=== PATIENT | female | born 1955 | race Caucasian/White ===

== ENCOUNTER 2016-11-10 18:26 | Emergency (ER) | payer OTHER ==
[~2016-11-10] VITALS: Ht 170.2 cm; Wt 102.2 kg
[~2016-11-10 18:26] MED LIST: LOTR10CA PO; METH750T2 PO; PROC1TAB8 PO
[2016-11-10 18:30] VITALS: BP 162/85; PULSE 100; RESP 16; TEMP 98; O2SAT 98
--- NOTE | 2016-11-11 00:43 | PD ---
HPI Chief Complaint: Skin Problem Time Seen by Provider: 00:17 Travel History International Travel<30 days: No Contact w/Intl Traveler<30days: No Traveled to known affect area: No History of Present Illness HPI Patient's 51 years old and cellulitis of the left leg. She was admitted to the hospital for cellulitis. She was discharged on doxycycline about 5 days ago. She has noted mild gradual movements since. No fever has occurred. She saw Dr. Rajan today and was advised she would receive at home wound care as well as Levaquin prescription. Evidently neither was provided and so the patient arrives here for guidance regarding wound care/management. She's had no fever or progression of the cellulitis that she can appreciate. She reports strict compliance doxycycline. Family members present and willing to change her dressing twice daily. An ultrasound was performed at the outside hospital which showed no DVT. PFSH Past Medical History Arthritis: Yes Atrial Fibrillation: Yes ("PRE-AFIB" PER PT) Heart Rhythm Problems: Yes Cancer: No Cardiovascular Problems: Yes (HTN IRREGULAR HEART BEAT) Diabetes: No Diminished Hearing: No Endocrine: No Genitourinary: No Hepatitis: Yes (CHEMICAL HEP ) Hiatal Hernia: No Hypertension: Yes Immune Disorder: No Musculoskeletal: Yes (ARTHRITIS) Neurologic: No Psychiatric: No Reproductive: No Respiratory: Yes (SLEEP APNEA/ ORAL APPLIANCE) Pneumonia: Yes Sleep Apnea: Yes (USES ORAL APPLIANCE) Thyroid Disease: No Past Surgical History Abdominal Surgery: Yes (LAP. JUAN, EXPL. LAP./ LYSIS ADHESIONS) AICD: No Cholecystectomy: Yes Eye Surgery: Yes (BILATERAL CATARACTS) Gynecologic Surgery: Yes (HYSTERECTOMY/ BSO) Hysterectomy: Yes Joint Replacement: No Pacemaker: No Other Surgery: Yes Social History Alcohol Use: No Tobacco Use: No Substance Use: No Allergies-Medications (Allergen,Severity, Reaction): Coded Allergies: Adhesives (Verified Allergy, Severe, SKIN BLISTERS, 03/29/16) PT HAD BLISTERS FROM STERI-STRIPS. AND RASH FROM SOME BANDAIDS Sulfa (Unverified Allergy, Severe, 03/29/16) Methotrexate (Verified Allergy, Intermediate, 11/11/16) Reported Meds & Prescriptions Reported Meds & Active Scripts Active Xeroform Petrolatum Dress (Bismuth Tribromophenate-Petrol) 1 Mis Mis 1 Pad TOPICAL BID NEB 28 Days Reported Doxycycline (Doxycycline (Monohydrate)) 100 Mg Cap BID Methylprednisolone 4 Mg Tab 2 Mg PO DAILY [Lantanprost] Amlodipine-Benazepril 10-20 Mg Cap 1 Cap PO DAILY Review of Systems Except as stated in HPI: all other systems reviewed are Neg Physical Exam Narrative GENERAL: 61-year-old female pleasant well-nourished well-developed SKIN: Warm and dry. Erythema from the left lower need to the region of the left ankle mortise circumferential was some blister formation along the medial aspect. No marked tenderness. 2+ dorsalis pedis bilaterally. No crepitus. HEAD: Atraumatic. Normocephalic. EYES: Pupils equal and round. No scleral icterus. No injection or drainage. ENT: No nasal bleeding or discharge. Mucous membranes pink and moist. NECK: Trachea midline. No JVD. CARDIOVASCULAR: Regular rate and rhythm. No murmur appreciated. RESPIRATORY: No accessory muscle use. Clear to auscultation. Breath sounds equal bilaterally. GASTROINTESTINAL: Abdomen soft, non-tender, nondistended. Hepatic and splenic margins not palpable. MUSCULOSKELETAL: No obvious deformities. No clubbing. No cyanosis. No edema. NEUROLOGICAL: Awake and alert. No obvious cranial nerve deficits. Motor grossly within normal limits. Normal speech. PSYCHIATRIC: Appropriate mood and affect; insight and judgment normal. Data Data Last Documented VS Vital Signs Date Time Temp Pulse Resp B/P Pulse Ox O2 Delivery O2 Flow Rate FiO2 11/11/16 01:31 61 18 161/76 96 11/10/16 18:30 98.0 Orders Basic Metabolic Panel (Bmp) (11/11/16 00:41) Complete Blood Count With Diff (11/11/16 00:41) Blood Culture (11/11/16 00:41) Wound Culture And Gram Stain (11/11/16 00:41) Iv Access Insert/Monitor (11/11/16 00:41) Wound Care (11/11/16 00:41) Ankle, Limited (Ap&Lat) (11/11/16 ) Foot, Limited (2vws) (11/11/16 ) Labs Laboratory Tests Test 11/11/16 00:55 White Blood Count 12.5 TH/MM3 Red Blood Count 4.99 MIL/MM3 Hemoglobin 14.7 GM/DL Hematocrit 43.9 % Mean Corpuscular Volume 88.0 FL Mean Corpuscular Hemoglobin 29.6 PG Mean Corpuscular Hemoglobin 33.6 % Concent Red Cell Distribution Width 14.1 % Platelet Count 350 TH/MM3 Mean Platelet Volume 8.8 FL Neutrophils (%) (Auto) 77.5 % Lymphocytes (%) (Auto) 15.0 % Monocytes (%) (Auto) 7.2 % Eosinophils (%) (Auto) 0.1 % Basophils (%) (Auto) 0.2 % Neutrophils # (Auto) 9.7 TH/MM3 Lymphocytes # (Auto) 1.9 TH/MM3 Monocytes # (Auto) 0.9 TH/MM3 Eosinophils # (Auto) 0.0 TH/MM3 Basophils # (Auto) 0.0 TH/MM3 CBC Comment AUTO DIFF Sodium Level 142 MEQ/L Potassium Level 3.4 MEQ/L Chloride Level 104 MEQ/L Carbon Dioxide Level 30.2 MEQ/L Anion Gap 8 MEQ/L Blood Urea Nitrogen 17 MG/DL Creatinine 0.99 MG/DL Estimat Glomerular Filtration 57 ML/MIN Rate Random Glucose 118 MG/DL Calcium Level 9.1 MG/DL MDM Medical Decision Making Medical Screen Exam Complete: Yes Emergency Medical Condition: Yes Medical Record Reviewed: Yes Differential Diagnosis Cellulitis, DVT, abscess, necrotizing fasciitis Narrative Course CBC & BMP Diagram 11/11/16 00:55 Last 24 hours Impressions Foot X-Ray 11/11/16 0000 Signed Impressions: Service Date/Time: Friday, November 11, 2016 00:56 - CONCLUSION: Diffuse soft tissue swelling about the forefoot or midfoot; the osseous structures are grossly intact. Haider Veliz MD Ankle X-Ray 11/11/16 0000 Signed Impressions: Service Date/Time: Friday, November 11, 2016 00:52 - CONCLUSION: Diffuse soft tissue swelling. The osseous structures appear grossly intact. Haider Veliz MD Unfortunately the patient's overall presentation appears to be improving. Her white count on admission at outside hospitals 18. Today at school. She is overall the area cellulitis of the left lower extremity appears to be healing appropriately. We have provided wound care instructions as well as a prescription for Xeroform. We'll extend the doxycycline prescription for extra 5 days. Return precautions were discussed in some detail. Follow-up as listed. Diagnosis Primary Impression: Cellulitis Qualified Code: L03.116 - Cellulitis of left lower extremity Referrals: DR RAJAN 3 days Yon BrockM 3 days Additional Instructions: You have a choice when it comes to health care, and we are glad that you chose [facility]. Hopefully, we have met your expectations on today's visit. You are welcome to return to [facility] at any time, as we are committed to meeting the health care needs of our community. Med/Other Pt SpecificInfo: Prescription(s) given Scripts Doxycycline Hyclate DR 100 Mg [id number] Mg PO BID 5 Days Ref 0 Prov:Quincy Thomas MD 11/11/16 Bismuth Tribromophenate-Petrol (Xeroform Petrolatum Dress)1 Mis Mis1 Pad TOPICAL BID NEB 28 Days Prov:Quincy Thomas MD 11/11/16 Disposition: 01 DISCHARGE HOME Condition: Stable Quincy Thomas MD Nov 11, 2016 00:43
[2016-11-11] MEDS ORDERED: AMLO10CA PO (00:52)
[2016-11-11] MEDS ORDERED: METH4TAB6 PO (00:52)
[2016-11-11] MEDS ORDERED: DOXY1CAP91 (00:52)
[2016-11-11] MEDS ORDERED: [UNRECOGNIZED DRUG - OTHER] (00:52)
--- NOTE | 2016-11-11 01:11 | RADRPT ---
EXAM DATE/TIME: 11/11/2016 00:52 [facility] COMPARISON: No previous studies available for comparison. INDICATIONS : Pt has had left lower leg swelling x 3 days. Numerous blisters to lower leg as well as redness and sw elling. MEDICAL HISTORY : None. SURGICAL HISTORY : None. ENCOUNTER: Initial ACUITY: 3 days PAIN SCORE: 8/10 LOCATION: Left ankle FINDINGS: Two view exam was performed of the left ankle. The bony structures are in normal alignment. No evid ence of fracture, dislocation, or periosteal reaction. Prominent soft tissue swelling about the mid and distal leg. No radiopaque foreign bodies are seen. Bony mineralization is normal. CONCLUSION: Diffuse soft tissue swelling. The osseous structures appear grossly intact. Haider Veliz MD on November 11, 2016 at 1:09 Board Certified Radiologist. This report was verified electronically.
[2016-11-11 01:12] LABS: AUTOMATED NEUTROPHIL # 9.7 TH/MM3 (1.8-7.7); BASOPHIL % 0.2 % (0.0-2.0); EOSINOPHIL % 0.1 % (0.0-4.0); HEMATOCRIT 43.9 % (35.0-46.0); LYMPHOCYTE # 1.9 TH/MM3 (1.0-4.8); MEAN CORPUSCULAR HEMOGLOBIN 29.6 PG (27.0-34.0); MEAN CORPUSCULAR HGB CONC 33.6 % (32.0-36.0); MONO % 7.2 % (0.0-8.0); NEUT % 77.5 % (16.0-70.0); PLATELET COUNT 350 TH/MM3 (150-450); RED BLOOD COUNT 4.99 MIL/MM3 (4.00-5.30); RED CELL DISTRIBUTION WIDTH 14.1 % (11.6-17.2); WHITE BLOOD COUNT 12.5 TH/MM3 (4.0-11.0)
--- NOTE | 2016-11-11 01:12 | RADRPT ---
EXAM DATE/TIME: 11/11/2016 00:56 [facility] COMPARISON: No previous studies available for comparison. INDICATIONS : Pt has had left lower leg swelling x 3 days. Numerous blisters to lower leg as well as redness and sw elling. MEDICAL HISTORY : None. SURGICAL HISTORY : None. ENCOUNTER: Subsequent ACUITY: 3 days PAIN SCORE: 8/10 LOCATION: Left foot FINDINGS: There is diffuse soft tissue swelling about the forefoot and midfoot. The osseous structures appear grossly intact. No periosteal reaction, radiopaque foreign body or evidence of fracture. Small retr ocalcaneal spur. CONCLUSION: Diffuse soft tissue swelling about the forefoot or midfoot; the osseous structures are grossly intact . Haider Veliz MD on November 11, 2016 at 1:10 Board Certified Radiologist. This report was verified electronically.
[2016-11-11 01:13] LABS: HEMO FLAGS AUTO DIFF
[2016-11-11 01:27] LABS: BICARBONATE 30.2 MEQ/L (21.0-32.0); POTASSIUM 3.4 MEQ/L (3.5-5.1)
[2016-11-11 01:31] VITALS: BP 161/76; PULSE 61; RESP 18; O2SAT 96
[2016-11-11] MEDS ORDERED: XEROMIS TOPICAL (02:19)
[2016-11-11] MEDS ORDERED: DOXY1TAB6 PO (02:27)
[2016-11-11 02:56] LABS: PLATELET ESTIMATE SMEAR NORMAL (NORMAL); PLATELET MORPHOLOGY NORMAL (NORMAL); SCAN/DIFF AUTO DIFF CONFIRMED
[2016-11-12] MEDS ORDERED: LATA.005%O (08:59)
== END 2016-11-11 02:56 | disposition home or self-care (01) ==
LOC: NEPE 18:26
DX: L03.116 Cellulitis of left lower limb (principal); B95.61 Methicillin susceptible Staphylococcus aureus infection as the cause of diseases classified elsewhere
CPT/HCPCS: 73600; 73620; 80048; 85025; 86403; 87040; 87070; 87186; 99283

== ENCOUNTER → 2017-09-25 | Outpatient (CLI) | payer OTHER ==
[~2017-09-25] MED LIST changes: +ADJUSTABLE COMM1 MIS; +AMLO10 PO; +AMLO10CA PO; +CETI10CA3 PO; +CPMMACHINE; +DOXY1CAP91; +DOXY1TAB6 PO; +FLUO0.022 TOPICAL; +HALO0.053 TOPICAL; +LATA.005%O; +LEFL1TAB3 PO; +LOPE2CAP PO; -LOTR10CA PO; +METH4TAB6 PO; -METH750T2 PO; -PROC1TAB8 PO; +VALS1TAB65 PO; +WALKER WHEELS/F1 MIS; +XEROMIS TOPICAL
== END ==
LOC: CPRE 08:04
PROVIDERS: ATTEND Surgery
DX: Z01.810 Encounter for preprocedural cardiovascular examination (principal); Z01.812 Encounter for preprocedural laboratory examination; Z79.01 Long term (current) use of anticoagulants

== ENCOUNTER 2017-10-02 05:36 | Inpatient (IN) | payer OTHER ==
--- NOTE | 2017-09-26 15:56 | MH ---
cc: Ese NANCE M.D. DATE OF ADMISSION: 10/02/2017 ADMISSION DIAGNOSIS Osteoarthritic degeneration right knee now being admitted for right total knee arthroplasty. ADMISSION HISTORY AND PHYSICAL This is a pleasant 61-year-old female who is being admitted today for right total knee arthroplasty due to severe painful osteoarthritic degeneration right knee. PAST MEDICAL HISTORY: Other past history she has psoriatic arthritis as well. She also has a history of hypertension Sciatica. CURRENT MEDICATIONS Amiodarone Benazepril PAST SURGERIES Hysterectomy Cholecystectomy Cataract surgery Shoulder repair Exploratory lap. Lysis of adhesions. REVIEW OF SYSTEMS Noncontributory. FAMILY HISTORY Noncontributory. ALLERGIES She has allergies to STERI-STRIPS AND SULFA MEDICATION. PHYSICAL EXAMINATION: IN GENERAL: We find a 61-year-old female well-developed, well-nourished x3 complaint of pain right knee. VITAL SIGNS: Blood pressure 118/78, pulse 66 and regular, respirations 16, temperature 97.8, pulse oximetry 97% on room air. HEAD, EYES, EARS, NOSE, AND THROAT: Eyes Pupils equal, round, reactive to light and accommodation, extraocular muscles intact, Ears, nose, mouth clear. NECK: Supple. LUNGS: Clear. HEART: Regular rate. ABDOMEN: Soft. Bowel sounds, nontender. EXTREMITIES: Reveal her right knee to have crepitance on range of motion. NEUROLOGICALLY: Neurovascularly her toes. IMPRESSION Severe painful osteoarthritic degeneration right knee. PLAN Admission for right total knee arthroplasty today. The patient understands procedure well and risks involved and is given prescription postoperative pain anticoagulation control in the office understands the use Hibiclens scrub and Bactroban preoperatively. The patient plans on going home with home health care after surgical stay in the hospital. JMD CURTIS Ibrahim/willy /3:43 PM /3:53 PM MTDNanda
[~2017-10-02] VITALS: Ht 170.2 cm; Wt 98.9 kg
[~2017-10-02 05:36] MED LIST changes: -ADJUSTABLE COMM1 MIS; -AMLO10CA PO; -CPMMACHINE; -DOXY1CAP91; -DOXY1TAB6 PO; -HALO0.053 TOPICAL; -METH4TAB6 PO; -WALKER WHEELS/F1 MIS; -XEROMIS TOPICAL
[2017-10-02] MEDS ORDERED: ceFAZolin 2 GM PREMIX 50 ML IV SCH (06:15)
[2017-10-02] MEDS ORDERED: LACTATED RINGER'S 1000 ML IV PRN (06:15)
[2017-10-02] MEDS ORDERED: DEXAMETHASONE SOD PHOS 20 MG/5 ML VIAL IV SCH (06:15)
[2017-10-02] MEDS ORDERED: POVIDONE IODINE 5% (ANTISEPSIS KIT) 4 APPLICATIONS EACH NARE PRN (06:15)
[2017-10-02] MEDS ORDERED: METOPROLOL TARTRATE 25 MG TAB PO PRN (06:15)
[2017-10-02] MEDS ORDERED: VANCOMYCIN 1000 MG/NS 250 ML (for <70 kg) IV SCH ×2 (06:15)
[2017-10-02] MEDS ORDERED: SODIUM CHLORID 0.9% 500 ML IV PRN (06:15)
[2017-10-02] MEDS ORDERED: CHLORHEXIDINE GLUCONATE 2 % 1 PACK (2 CLOTHS) TOPICAL PRN (06:15)
[2017-10-02] MEDS ORDERED: CHLORHEXIDINE GLUCONATE 4% SOLN 120 ML BTL TOPICAL SCH (06:15)
[2017-10-02] MEDS ORDERED: HALO0.053 TOPICAL (06:26)
[2017-10-02] MEDS ORDERED: ACETAMINOPHEN 1000 MG/100 ML 0 ML IV ONE (06:49)
[2017-10-02] MEDS ORDERED: FAMOTIDINE 20 MG/2 ML VIAL ONE (06:50)
[2017-10-02] MEDS ORDERED: ceFAZolin INJ 1,000 MG VIAL ONE (06:53)
[2017-10-02] MEDS ORDERED: BUPIVACAINE LIPOSOME PF 1.3% 20 ML VIAL ONE (07:32)
--- NOTE | 2017-10-02 07:56 | HHI.FF ---
Face to Face Verification Diagnosis: (1) Status post total right knee replacement Physical Therapy Gait training Knee: Total knee, Protocol: Right, Gait training, Full weight bearing Canvas Knee Splint: When in bed & 2 pillows btw thighs Nursing RN: 3 days/week x 2 weeks Nursing: Dressing changes Dressing Changes: Daily dressing change, 4x4s, Gauze, Paper tape I have seen patient Mariza Otero on 10/02/17. My clinical findings support the need for the requested home health care services because: Limited ability to care for self High risk of falls I certify that my clinical findings support that this patient is homebound because: Unsteady gait/balance Ese Polo MD Oct 02, 2017 07:56
[2017-10-02] MEDS ORDERED: CPMMACHINE (07:58)
[2017-10-02] MEDS ORDERED: ADJUSTABLE COMM1 MIS (07:58)
[2017-10-02] MEDS ORDERED: WALKER WHEELS/F1 MIS (07:58)
[2017-10-02] MEDS ORDERED: TEMAZEPAM 15 MG CAP PO PRN (08:00)
[2017-10-02] MEDS ORDERED: SODIUM CHLORIDE 0.9% IV SCH ×2 (08:00→11:00)
[2017-10-02] MEDS ORDERED: NALOXONE HCL 0.4 MG/ML AMP IV PUSH PRN (08:00)
[2017-10-02] MEDS ORDERED: ACETAMINOPHEN/HYDROcodone 325 MG/7.5 MG TAB PO PRN (08:00)
[2017-10-02] MEDS ORDERED: diphenhydrAMINE HCL 50 MG/ML VIAL IV PUSH PRN (08:00)
[2017-10-02] MEDS ORDERED: MORPHINE SULFATE 4 MG/ML INJ IV PUSH PRN (08:00)
[2017-10-02] MEDS ORDERED: Post-op Orders (for Pharmacy) MISC XX ONE (08:00)
[2017-10-02] MEDS ORDERED: ONDANSETRON HCL 4 MG/2 ML VIAL IVP PRN (08:00)
[2017-10-02] MEDS ORDERED: TRANEXAMIC ACID IV SCH ×2 (08:00→11:00)
[2017-10-02] MEDS ORDERED: ACETAMINOPHEN 325 MG TAB PO PRN (08:00)
[2017-10-02] MEDS ORDERED: EXPAREL PERI-ARTICULAR INJECTION (TOTAL VOL. 120 ML) P-ARTICULR SCH ×2 (08:00)
[2017-10-02] MEDS ORDERED: TRANEXAMIC ACID INJ 0 MG in SODIUM CHLORIDE 0.9% INJ 100 ML IV SCH (08:00)
[2017-10-02] MEDS: VALSARTAN 160 MG TAB PO SCH (09:00)
[2017-10-02] MEDS ORDERED: LEFLUNOMIDE 20 MG TAB PO SCH (09:00)
[2017-10-02] MEDS: SODIUM CHLORIDE 0.9% FLUSH 10 ML FLUSH IV FLUSH SCH ×2 (09:00→21:00)
[2017-10-02] MEDS: CETIRIZINE HCL 10 MG TAB PO SCH (09:00)
[2017-10-02] MEDS ORDERED: TRIAMCINOLONE ACETONIDE 0.1% OINT 15 GM TUBE TOPICAL PRN (09:00)
[2017-10-02] MEDS ORDERED: SODIUM CHLORIDE 0.9% FLUSH 10 ML FLUSH IV FLUSH PRN (09:15)
[2017-10-02] MEDS: BETAMETHASONE DIPROPIONATE 0.05% OINT 15 GM TUBE TOPICAL SCH ×2 (10:00→21:00)
--- NOTE | 2017-10-02 10:38 | MP ---
cc: Ese POLO M.D. DATE OF SURGERY 10/02/2017 PREOPERATIVE DIAGNOSIS Osteoarthritic degeneration right knee. POSTOPERATIVE DIAGNOSIS Osteoarthritic degeneration right knee. SURGERY PERFORMED Right total knee arthroplasty using Consensus components size 4 femur, 2 tibia, 1 patella, size 12 insert and two batches of DePuy cement. SURGEON Dr. Polo REGULATORY AND COMPLIANCE TECHNICIAN GUALBERTO Rossi ANESTHESIA General intubation and adductor canal block PROCEDURE After successful induction of anesthesia, the patient is placed on the operating room table in the supine position. The knee is prepped and draped in the usual manner. A tourniquet is inflated at the upper thigh and set to 300 mmHg pressure after exsanguination of the lower extremity. A longitudinal incision is made extending from 3 inches proximal to the superior pole of the patella, across the patella in longitudinal fashion, and down past the insertion of the tibial tubercle into the proximal tibia. The incision is carried down through subcutaneous tissue along the medial aspect of the patella and retinaculum, down through the capsule to expose the knee joint. The patella and patellar tendon are freed up enough to allow the patella to be inverted and retracted off the lateral side of the knee joint. The knee joint is left exposed. Small osteophytes are removed. All soft tissue is removed to allow proper position of the femoral and tibial cutting jig guide. The first femoral jig is then inserted along the distal end of the femur after first measuring to decide whether this is a small, medium, or large component. The notch is then drilled and the tibial cutting guide inserted into the femoral cutting guide, along with the ankle brace to allow for proper measurement of the tibial cutting surface that needed to be resected. Pins are inserted into the tibial cutting jig and femoral cutting jig to hold them in place. An oscillating saw is then used to resect the surface of the tibia. The surface of the tibia is then completely removed using sharp and blunt dissection. The anterior and posterior cuts of the femur are then made as well using an oscillating saw through the cutting guide. All guides are then removed and the varus/valgus angulation cutting guide applied to the femur for proper measurement of the proper amount of valgus. The anterior cutting guide for the femur is then inserted at the anterior femoral cuts made. Next, the first block trial is inserted into the femur to allow for proper condyle drill holes to be made which are then made followed by removal of the bone between the condyles using an oscillating saw as well as the bone removed at the most posterior surface of the condyle. After this, this guide is removed and the chamfer cuts made using the chamfer cutting guide from both anterior and posterior. Next, the femoral trial is then inserted, the tibial surface reflected anterior to expose the tibial surface and a tibial stem guide is inserted after first measuring for a standard, standard plus, large, or large plus surface to be used. After the stem is impacted the trial tibial surface is applied followed by the trial meniscal components. After full range of motion is found with the appropriate length meniscal components varying the patella is prepared by resecting the posterior aspect of the patella using an oscillating saw, inserting a trial. The trial is then removed and the cruciate cutting guide applied using the bur to cut the cruciate cuts. After cruciate cuts are made all trials are removed. The wound is irrigated copiously with antibiotic solution and Water-Pik and the actual components inserted into place using Consensus components size 4 femur, 2 tibia, 1 patella, size 12 insert and two batches of [employer] cement After the cement has hardened and the components are found to have full range of motion with no instability, the tourniquet is deflated, total tourniquet time being 53 minutes at 300 mmHg pressure. The wound again is irrigated copiously with antibiotic solution, meticulous hemostasis achieved. 120 cc of Exparel used around the knee joint for extra pain control. The deep fascia approximated with running #2 Quill, subcutaneous tissue approximated using interrupted 2-0 and 3-0 Monocryl suture, skin glue and a sterile dressing. Note, no Steri-Strips as the patient is allergic to Steri-strips. A knee immobilizer applied. No drain utilized. ESTIMATED BLOOD LOSS: 50 cc. COUNTS: Sponge and suture counts were correct. The patient tolerated the procedure well, left the operating room in satisfactory condition. GUALBERTO Rossi was present during the entire procedure to include patient positioning and the procedure. The medical necessity of a nurse practitioner as a executive assistant was indicated in this case due to the surgical complexity of the case itself and during the surgical case, the radio television technical director was working the back table while my assistant sales manager GUALBERTO was directly assisting me. J. MD CURTIS Hernandez/DJL /10:28 AM /10:32 AM MTDD
--- NOTE | 2017-10-02 10:44 | HHI.PR ---
Immediate Post Op Note Procedure Date: Oct 02, 2017 Pre Op Diagnosis: Osteoarthritis of right knee Post Op Diagnosis: Osteoarthritis of right knee Surgeon: Ese Polo MD Rn Medical Surgical(s): Sabi BURCIAGA Procedure: Right Total Knee Arthroplasty Complications: none Specimen(s) removed: none Estimated blood loss: 50cc Anesthesia: General Drains: None IVF Urinary Output (mLs): 0 (no funes) Tourniquet time (min at mmHg) 53 mins at 300 mmHg Patient to: PACU Patient Condition: Good Implant/Devices: SEE IMPLANT LOG (if applicable) Date/Time of Procedure: SEE SURGICAL CARE RECORD Sabi Schreiber Oct 02, 2017 10:44
[2017-10-02] MEDS ORDERED: DO NOT ADM ANY ANTICOAGULANT DRUGS PRN (10:45)
[2017-10-02] MEDS ORDERED: *morphine SULFATE 8 MG/ML PERIprocedure ONLY ONE (10:59)
[2017-10-02] MEDS: LACTATED RINGER'S 1000 ML INJ 1,000 ML IV SCH ×2 (11:05→21:30)
--- NOTE | 2017-10-02 11:28 | RADRPT ---
EXAM DATE/TIME: 10/02/2017 09:07 [facility] COMPARISON: No previous studies available for comparison. INDICATIONS : Post-op Right knee replacement. MEDICAL HISTORY : None. SURGICAL HISTORY : Total knee replacement, right. ENCOUNTER: Initial ACUITY: 1 day PAIN SCORE: Non-responsive. LOCATION: Right Knee FINDINGS: 2 views of the knee show a total knee prosthesis in good position. No fracture or dislocation is obse rved. Soft tissue swelling is noted. Air and fluid is noted within the joint. CONCLUSION: Total knee arthroplasty in good position. Haider Gilmore Jr., MD on October 02, 2017 at 11:26 Board Certified Radiologist. This report was verified electronically.
[2017-10-02] MEDS ORDERED: PROPOFOL 200 MG/20 ML AMP IV ONE (12:00)
[2017-10-02] MEDS ORDERED: ROCURONIUM INJ 50 MG/5 ML SYRINGE IV PUSH ONE (12:00)
[2017-10-02] MEDS ORDERED: LIDOCAINE HCL 1% PF 5 ML SYRINGE OTHER ONE (12:00)
[2017-10-02] MEDS ORDERED: LACTATED RINGER'S 1000 ML INJ 1,000 ML IV ONE (12:00)
[2017-10-02] MEDS ORDERED: GLYCOPYRROLATE 1 MG/5 ML SYRINGE IV PUSH ONE (12:00)
[2017-10-02] MEDS ORDERED: MIDAZOLAM HCL 2 MG/2 ML VIAL IV ONE (12:00)
[2017-10-02] MEDS ORDERED: NEOSTIGMINE 3 MG/3 ML SYR IV ONE (12:00)
[2017-10-02] MEDS ORDERED: ONDANSETRON HCL 4 MG/2 ML VIAL IV PUSH ONE (12:00)
[2017-10-02 12:50] VITALS: BP 124/78; PULSE 80; RESP 18; TEMP 96.7; O2SAT 93
[2017-10-02] MEDS: ACETAMINOPHEN/HYDROcodone 325 MG/7.5 MG TAB PO PRN (14:54)
[2017-10-02 15:44] VITALS: O2SAT 97
[2017-10-02 16:00] VITALS: BP 139/74; PULSE 87; RESP 16; TEMP 97.8; O2SAT 92
[2017-10-02 19:56] VITALS: BP 120/70; PULSE 82; RESP 18; TEMP 96.4; O2SAT 98
[2017-10-02 23:33] VITALS: BP 121/59; PULSE 72; RESP 17; TEMP 98.6; O2SAT 95
[2017-10-03] MEDS: ACETAMINOPHEN/HYDROcodone 325 MG/7.5 MG TAB PO PRN ×3 (00:22→13:48)
[2017-10-03 04:00] VITALS: BP 116/61; PULSE 72; RESP 18; TEMP 98.9; O2SAT 95
[2017-10-03 06:18] LABS: REVIEW FLAG FINAL
[2017-10-03 08:00] VITALS: BP 140/64; PULSE 72; RESP 16; TEMP 98; O2SAT 98
[2017-10-03] MEDS ORDERED: PROMETHAZINE HCL 25 MG TAB PO PRN (08:30)
[2017-10-03] MEDS: BETAMETHASONE DIPROPIONATE 0.05% OINT 15 GM TUBE TOPICAL SCH (09:00)
[2017-10-03] MEDS ORDERED: APIXABAN 2.5 MG TABLET PO SCH (09:00)
[2017-10-03] MEDS: VALSARTAN 160 MG TAB PO SCH (09:24)
[2017-10-03] MEDS: CETIRIZINE HCL 10 MG TAB PO SCH (09:24)
[2017-10-03] MEDS: SODIUM CHLORIDE 0.9% FLUSH 10 ML FLUSH IV FLUSH SCH (09:29)
[2017-10-03 09:45] VITALS: O2SAT 96
[2017-10-03] MEDS: LACTATED RINGER'S 1000 ML INJ 1,000 ML IV SCH (10:00)
--- NOTE | 2017-10-03 10:54 | PD.ORT.PN ---
Subjective Subjective Remarks The patient is comfortable today without complaints. She is ready to go home today. Objective Vitals Vital Signs Date Time Temp Pulse Resp B/P (MAP) Pulse Ox O2 Delivery O2 Flow Rate FiO2 10/03/17 09:45 96 21 10/03/17 04:00 98.9 72 18 116/61 (79) 95 10/02/17 23:33 98.6 72 17 121/59 (79) 95 10/02/17 19:56 96.4 82 18 120/70 (87) 98 10/02/17 16:00 97.8 87 16 139/74 (95) 92 10/02/17 15:44 97 10/02/17 13:43 Nasal Cannula 3.00 10/02/17 12:50 96.7 80 18 124/78 (93) 93 10/02/17 12:00 98.6 90 16 140/68 (92) 96 Nasal Cannula 3 10/02/17 11:45 75 12 134/65 (88) 93 10/02/17 11:30 91 16 142/67 (92) 92 10/02/17 11:15 83 14 143/79 (100) 91 Nasal Cannula 3 10/02/17 11:00 89 20 130/73 (92) 93 I/O 10/02/17 10/02/17 10/02/17 10/03/17 10/03/17 10/03/17 07:00 15:00 23:00 07:00 15:00 23:00 Intake Total 2240 ml 580 ml 360 ml Output Total 3050 ml 500 ml Balance -810 ml 580 ml -140 ml Intake Oral 640 ml 480 ml 360 ml IV Total 1600 ml 100 ml Output Emesis 500 ml Estimated Blood Loss 50 ml Other 3000 ml # Voids 4 3 6 # Bowel Movements 0 0 0 Result Diagram: 10/03/17 0555 Objective Remarks Patient is sitting up in a chair. She is neurovascularly intact to her toes. The dressing is dry and intact. There is no calf tenderness. Assessment & Plan Ortho Post Op Day #: 1 Problem List: Assessment and Plan Continue physical therapy. Out of bed today. Daily wound care. Home this afternoon with instructions for home healthcare and physical therapy. She is discharged in good condition and has appointment for follow-up in the office. She tolerates by mouth pain meds. Ese Polo MD Oct 03, 2017 10:54
--- NOTE | 2017-10-03 10:56 | HHI.DS ---
Discharge Summary Admission Date Oct 02, 2017 at 05:36 Discharge Date: Oct 03, 2017 Admitting Diagnosis Osteoarthritic degeneration right knee Diagnosis: (1) Status post total right knee replacement Diagnosis: Principal ICD Codes: Z96.651 - Presence of right artificial knee joint Brief History This is a 61 year old female patient CBC/BMP: 10/03/17 0555 Significant Findings Laboratory Tests Test 10/03/17 05:55 PE at Discharge Patient is sitting up in a chair. She is neurovascularly intact to her toes. The dressing is dry and intact. There is no calf tenderness. Hospital Course The patient underwent a right total knee arthroplasty on day of admission. She received a course of prophylactic IV antibiotics and within 23 hours started on anticoagulation therapy. She tolerated food and fluid well had 1 episode of nausea within a few hours after surgery which dissipated later. She began out of bed tolerating by mouth pain meds and physical therapy. She was discharged the first postoperative day in good condition with instructions for home healthcare and physical therapy and daily wound care. She has a follow-up appointment scheduled in the office. Pt Condition on Discharge: Good Discharge Disposition: Disch w/ Home Health Serv Discharge Instructions Diet Instructions: As Tolerated, No Restrictions Activities You Can Perform: Full Weight Bearing, Shower Only-No Bath Activities to Avoid: Bathing, Driving Ese Polo MD Oct 03, 2017 10:56
[2017-10-03] MEDS ORDERED: MULTIVITAMINS/MINERALS THERAPEUTIC TAB PO SCH (21:00)
[2017-10-03] MEDS ORDERED: DOCUSATE SODIUM 100 MG CAP PO SCH (21:00)
[2017-10-04] MEDS ORDERED: BACITRACIN OINT 0.9 GM PKT TOP PRN (10:15)
== END 2017-10-03 16:30 | disposition home health service (06) | DRG 470 ==
LOC: HSDI 05:36 → N06B 12:28
PROVIDERS: ADMIT Surgery; ATTEND Surgery
PROC: 3E0T3BZ Introduction of Anesthetic Agent into Peripheral Nerves and Plexi, Percutaneous Approach (ICD-10-PCS; 2017-10-02)
PROC: 0SRC0J9 Replacement of Right Knee Joint with Synthetic Substitute, Cemented, Open Approach (ICD-10-PCS; principal; 2017-10-02 07:50)
DX: M17.11 Unilateral primary osteoarthritis, right knee (principal); L40.50 Arthropathic psoriasis, unspecified; I10 Essential (primary) hypertension; Z79.01 Long term (current) use of anticoagulants
CPT/HCPCS: 73560; 85014; 85018; 86850; 86900; 86901; 94150; C1776; C9290; J0131; J0690; J1100; J2250; J2270; J2405; J2710; J3010; J3370; J7050; J7120; L1830